=== PATIENT | female | born 1990 | race Caucasian/White ===

== ENCOUNTER 2017-10-03 21:00 | Emergency (ER) | payer OTHER ==
[~2017-10-03] VITALS: Ht 154.9 cm; Wt 51.5 kg
[~2017-10-03 21:00] MED LIST: FERR325E14 PO
[2017-10-03 21:10] VITALS: BP 122/72
--- NOTE | 2017-10-03 22:27 | NUR ---
PT TAKEN TO BED 11
[2017-10-03] MEDS ORDERED: diphenhydrAMINE 50 MG/ML VIAL IM ONE (23:25)
[2017-10-03] MEDS ORDERED: PROCHLORPERAZINE 10 MG/2 ML VIAL IM ONE (23:25)
--- NOTE | 2017-10-03 23:50 | NUR ---
27Y/F PRESENTS TO ER C/O HEADACHE, DIZZINESS, N/V. NO PMH, NKA. PT STATES SHE WAS AT HOME RESTING WHEN SYMPTOMS BEGAN, PT STATES WHEN SHE HAD HEADACHE SHE HAD PARTIAL VISION FIELD LOSS. PT STATES PAIN IS 10/10, STARTING IN LEFT EYE TEMPORAL AREA, NON RADIATING X1 DAY. PT STATES SHE HAS HAD NUMBNESS TO LEFT SIDE ARM AND HAND. PT IS BL NORMAL STRENGHT AT THIS TIME, DENIES VISION LOSS AT THIS TIME AND DENIES DIZINESS. PT IN BED, AT BEDSIDE.
--- NOTE | 2017-10-04 00:37 | NUR ---
PT IN BED RESTING, STATES SHE FEELS NO PAIN AT THIS TIME.
--- NOTE | 2017-10-04 01:15 | NUR ---
Patient discharged with v/s stable. Written and verbal after care instructions given and explained. Patient alert, oriented and verbalized understanding of instructions. Ambulatory with steady gait. All questions addressed prior to discharge. ID band removed. Patient advised to follow up with PMD. Rx of BENADRYL 25 MG, COMPRAZINE 10 MG given. Patient educated on indication of medication including possible reaction and side effects. Opportunity to ask questions provided and answered.
[2017-10-04 01:25] VITALS: BP 100/65
== END 2017-10-04 01:15 | disposition home or self-care (01) ==
LOC: MED 21:00
DX: G43.909 Migraine, unspecified, not intractable, without status migrainosus (principal); R03.0 Elevated blood-pressure reading, without diagnosis of hypertension; Z79.899 Other long term (current) drug therapy; Z91.018 Allergy to other foods
CPT/HCPCS: 70450; 81002; 81025; 96372; 99284; J0780; J1200; J7060

== ENCOUNTER 2018-06-21 13:40 | Emergency (ER) | payer OTHER ==
[~2018-06-21] VITALS: Ht 152.4 cm; Wt 50.9 kg
[2018-06-21 13:47] VITALS: BP 113/66
--- NOTE | 2018-06-21 13:50 | NUR ---
PT PRESENT TO ED W/ CO/ VAGINAL SPOTTING AND LOWER ABD CRAMO SINCE THIS MORNING;PT UNSURE IF SHE IS ;DENIES N/V/ DIZZINESS/BLURRY OF VISSION; DENIES URGENCY/FREQUENCY / DYSURIA.PT AAOX 4; NO ACUTE DISTRESS NOTED;MONITORS IN PLACED;SAFETY MEASURES INSTITUTED;ER MD AWARE OF PT'S CONDITION.
[2018-06-21 15:21] LABS: BASOPHILS % (AUTO) 0.3 % (0.0-2.0); EOSINOPHILS % (AUTO) 0.2 % (0.0-4.0); HEMATOCRIT 35.7 % (36-48); HEMOGLOBIN 11.6 g/dL (12.0-16.0); LYMPHOCYTES % (AUTO) 29.2 % (20.5-51.1); MEAN CORPUSCULAR HEMOGLOBIN 27 pg (27-31); MEAN CORPUSCULAR HGB CONC 32 g/dL (33-37); MEAN CORPUSCULAR VOLUME 82.8 fL (80-94); MONOCYTES # (AUTO) 0.3 K/uL (0.8-1.0); MONOCYTES % (AUTO) 4.9 % (1.7-9.3); NEUTROPHILS # (AUTO) 4.6 K/uL (1.8-7.7); NEUTROPHILS % (AUTO) 65.4 % (42.2-75.2); PLATELET COUNT (AUTO) 223 K/uL (140-450); RED BLOOD CELL COUNT(AUTO) 4.31 MIL/uL (4.20-5.40); RED CELL DISTRIBUTION WIDTH 13.7 % (11.6-13.7)
[2018-06-21 15:25] LABS: APPEARANCE,URINE CLEAR (CLEAR); BILIRUBIN,URINE NEGATIVE (NEGATIVE); BLOOD, URINE 3+ (NEGATIVE); COLOR,URINE YELLOW (YELLOW); LEUKOCYTE ESTERASE ,URINE NEGATIVE (NEGATIVE); NITRITE, URINE NEGATIVE (NEGATIVE); PH,URINE 6.5 (5.0-9.0); UGLUCOSE NEGATIVE (NEGATIVE)
--- NOTE | 2018-06-21 15:27 | NUR ---
US AT BEDSIDE.
[2018-06-21 15:34] LABS: RBC,URINE 11-20 (MOD) /HPF (0-5)
[2018-06-21 17:50] VITALS: BP 122/73
--- NOTE | 2018-06-21 17:50 | NUR ---
Patient discharged with v/s stable. Written and verbal after care instructions given and explained. Patient verbalized understanding. Ambulatory with steady gait. All questions addressed prior to discharge. Advised to follow up with PMD.
== END 2018-06-21 17:50 | disposition home or self-care (01) ==
LOC: MED 13:40
DX: O20.0 Threatened abortion (principal); Z3A.01 Less than 8 weeks gestation of pregnancy; Z91.018 Allergy to other foods; Z79.899 Other long term (current) drug therapy
CPT/HCPCS: 36415; 76817; 81001; 84702; 85025; 86900; 86901; 87086; 99285; Q0092